=== PATIENT | male | born 1960 | race Caucasian/White ===

== ENCOUNTER → 2016-11-13 | Outpatient (CLI) | payer OTHER ==
--- NOTE | 2016-11-13 18:27 | CT ---
EXAMINATION TYPE: CT angio chest DATE OF EXAM: 11/13/2016 COMPARISON: 05/04/2015 HISTORY: Follow up anuerysm CT DLP: 431.1 mGycm CONTRAST: CTA thoracic and abdominal aorta with 3-D reconstruction is performed and with IV Contrast, patient i njected with 100 mL of Omnipaque 350. Contrast CTA of the thoracic was performed from the lung apex through the upper abdomen. 3-D reconstr uction imaging obtained at a separate workstation. CT Chest: THORACIC AORTA: There is an of the ascending thoracic aorta is stable at 4.5 cm versus 4.5 cm previou sly. The remainder of the thoracic aorta is of normal caliber. No evidence for dissection or complica ting factor. Mild atheromatous change noted. LUNGS: The lungs are clear and free of infiltrate or atelectasis. COPD with mild upper lobe emphysema tous change. No pulmonary nodule or mass is detected. No pleural effusion or CT evidence of intersti tial lung disease. MEDIASTINUM: The heart is not enlarged. No evidence for mediastinal mass or adenopathy. HILAR STRUCTURES: No evidence for mass. No hilar adenopathy is appreciated. OTHER: No significant abnormality. IMPRESSION- Stable ascending thoracic aortic aneurysm.
== END | disposition home or self-care (01) ==
LOC: RADCTMAIN 15:39
PROVIDERS: ATTEND Family Medicine
DX: I71.2 Thoracic aortic aneurysm, without rupture (principal)
CPT/HCPCS: 71275; Q9967

== ENCOUNTER → 2018-02-04 | Outpatient (CLI) | payer BC ==
--- NOTE | 2018-02-04 15:50 | CT ---
EXAMINATION TYPE: CT angio thor/abd pel aorta DATE OF EXAM: 02/04/2018 11:37 AM COMPARISON: 11/13/2016 HISTORY: Follow up thoracic aneurysm. CT DLP: 905.3 mGycm Automated exposure control for dose reduction was used. TECHNIQUE: Performed without and with IV Contrast, patient injected with 100 mL of Isovue 370. Three-D reconstructed images performed separately by the technologist are reviewed. FINDINGS: CT chest: Emphysematous bleb is at the medial anterior left upper lobe. Lung limon are otherwise mykel ar. CT ABDOMEN: Noncontrast imaging through the liver or spleen pancreas adrenal glands gallbladder and k idneys are unremarkable. Vascular calcification is within the aorta. Inferior vena cava is unremarkab le. Loops of bowel is visualized without oral contrast are unremarkable. Urinary bladder is normal. T he prostate is slightly prominent. Portion of the thyroid visualized and postcontrast imaging appears normal. Postcontrast CTA aorta:r aortic root measures 4.1 cm. The ascending thoracic aorta at the level of th e main pulmonary artery measures 4.3 cm. (Previous measurement 4.5 cm) The main pulmonary artery at t he bifurcation measures 2.7 cm. The aorta at the proximal aortic arch measures 3.5 cm. Posterior aort ic arch measures 3.1 cm. The descending thoracic aorta at the level the main pulmonary artery is 2.8 cm. The aorta at the diaphragm measures 2.8 cm. The infrarenal abdominal aorta measures 2.0 cm. Dista l abdominal aorta just proximal to the aortic bifurcation measures 2.0 cm. Common iliac vessels appea r unremarkable. Internal and external iliac vessels are patent. Common femoral arteries appear patent . No aneurysm or dissection is evident. IMPRESSION: 1. ASCENDING THORACIC AORTIC ANEURYSM APPEARS STABLE FROM COMPARISON. 2. DESCENDING THORACIC, ABDOMINAL AORTA AND AORTIC RUNOFF TO THE PROXIMAL FEMORAL ARTERIES TAPERS NOR PHYLICIA.
== END | disposition home or self-care (01) ==
LOC: RADCTMAIN 10:46
PROVIDERS: ATTEND Thoracic Surgery (Cardiothoracic Vascular Surgery)
DX: I71.2 Thoracic aortic aneurysm, without rupture (principal)
CPT/HCPCS: 71275; 74174; Q9967

== ENCOUNTER → 2019-03-02 | Outpatient (CLI) | payer BC ==
--- NOTE | 2019-03-02 09:35 | CT ---
EXAMINATION TYPE: CT chest w con DATE OF EXAM: 03/02/2019 COMPARISON: 02/04/2018 HISTORY: 59-year-old male Ascending aortic aneurysm. TECHNIQUE: Contiguous axial scanning of the chest after the administration of 100 mL of Isovue M300. Coronal/sagittal reconstructions performed. CT DLP: 334.2mGycm. Automatic exposure control utilized for a dose reduction. FINDINGS: Heart normal size without pericardial effusion. RCA and LAD calcifications are present. Aortic root measures 4.2 cm versus 4.1 cm, previously. Ascending aorta aneurysmal at 4.4 cm, unchanged. Proximal arch is ectatic at 3.7 cm, unchanged. Upper descending thoracic aorta is ectatic at 3.4 cm versus 3.1 cm, previously. Mildly ectatic mid to lower descending thoracic aorta measuring up to 2.8 cm, unchanged. No thoracic lymphadenopathy by CT size criteria. Aedx-kz-zbrxyhmo centrilobular emphysema greatest in the upper lungs. A large 3.3 cm bleb is located at the anterior left apex, unchanged. No consolidation or pleural effusion. Visualized upper abdomen shows no gross abnormality. Bones: Bridging syndesmophytes, ankylosis along the posterior elements and supraspinous ligaments as well. IMPRESSION: 1. Aortic root remains mildly aneurysmal (4.2 cm versus 4.1 cm, previously). 2. Aneurysmal ascending aorta at 4.4 cm, unchanged. 3. Upper descending thoracic aorta ectatic at 3.4 cm (versus 3.1 cm, previously). 4. COPD with mild to moderate upper lung emphysema and incidental ankylosing spondylitis.
== END | disposition home or self-care (01) ==
LOC: RADCTMAIN 08:43
PROVIDERS: ATTEND Thoracic Surgery (Cardiothoracic Vascular Surgery)
DX: J44.9 Chronic obstructive pulmonary disease, unspecified (principal); I71.4 Abdominal aortic aneurysm, without rupture; I77.810 Thoracic aortic ectasia
CPT/HCPCS: 71260; Q9967

== ENCOUNTER → 2019-11-03 | Outpatient (CLI) | payer BC ==
[~2019-11-03] MED LIST: REGADENOSON 0.4 MG/5 ML SYRINGE IV ONE
--- NOTE | 2019-11-03 12:10 | P.STRESS ---
- Stress Test Note Stress Test Results/Findings: Exam Performed: NM stress lexiscan cardiolite Exam Date: 11/03/19 Reason for Exam: CHEST PAIN Height: 6 ft 1 in Weight: 175 kg Protocol: LEXISCAN Stage: NA Duration of Exercise: NA Resting Heart Rate: 68 Resting Blood Pressure: 142/87 Maximum Achieved Heart Rate: 88 Maximum Achieved Blood Pressure: 142/87 85% PMHR: NA 100% PMHR: NA METS: NA Technologist Comment: Stress Test Results/Findings: This is a 59-year-old gentleman with history of hypertension smoking history, being evaluated for chest pain, palpitations, and also numbness in the face. Stress data Baseline EKG showed sinus rhythm with normal [place] interval and QRS duration. Blood pressure at rest is 142/87, pulse rate 68. A standard dose of Lexiscan was infused EKGs taken during the infusion did not reveal any changes from the baseline. Patient did not experience any chest pain. Final impression: #1. Negative Lexiscan stress test #2. Report on an interim is to be taken by the radiologist
--- NOTE | 2019-11-03 14:42 | EST ---
Stress Test Results/Findings: Exam Performed: NM stress lexiscan cardiolite Exam Date: 11/03/19 Reason for Exam: CHEST PAIN Height: 6 ft 1 in Weight: 175 kg Protocol: LEXISCAN Stage: NA Duration of Exercise: NA Resting Heart Rate: 68 Resting Blood Pressure: 142/87 Maximum Achieved Heart Rate: 88 Maximum Achieved Blood Pressure: 142/87 85% PMHR: NA 100% PMHR: NA METS: NA Technologist Comment: Stress Test Results/Findings: This is a 59-year-old gentleman with history of hypertension smoking history, being evaluated for chest pain, palpitations, and also numbness in the face. Stress data Baseline EKG showed sinus rhythm with normal RI interval and QRS duration. Blood pressure at rest is 142/87, pulse rate 68. A standard dose of Lexiscan was infused EKGs taken during the infusion did not reveal any changes from the baseline. Patient did not experience any chest pain. Final impression: #1. Negative Lexiscan stress test #2. Report on nuclear images to be given by the radiologist LA
--- NOTE | 2019-11-03 17:56 | NM ---
EXAMINATION TYPE: NM stress lexiscan cardiolite DATE OF EXAM: 11/03/2019 COMPARISON: NONE HISTORY: Chest pain TECHNIQUE: After the intravenous administration of 10 mCi Tc 99m Sestamibi - Cardiolite resting SPEC T images acquired 45 minutes post injection. The patient received 0.4mg Lexiscan, 24.9 mCi Tc 99m Sestamibi - Stress images obtained [address] injection FINDINGS: Review of stress and rest SPECT images demonstrates reversible perfusion abnormality of the septum an d apical and mid inferoseptal wall. Summed stress score There is gut activity, and decreased activity on stress and rest of the inferior wall, likely component of attenuation artifact. Gated analysis sh ows normal wall motion with an estimated left ventricular ejection fraction of 64 %. TID 1.19 IMPRESSION: 1. Reversible perfusion abnormality of the septum and inferoseptal wall. 2. Decreased activity of the inferior wall on stress and rest images likely component of gut attenua tion artifact. 3. Ejection fraction 64%. A [place] level critical message alert has been initiated for Kev Billings DO via the [employer] Critical Results System on 11/03/2019 5:54 PM. This message alert has been sent to Kev Doherty nd, DO via the preferences provided by the clinician for the receipt of Radiology Critical Findings. Message ID [id number].
== END | disposition home or self-care (01) ==
LOC: RADNMMAIN 07:20
PROVIDERS: ATTEND Family Medicine
DX: R93.1 Abnormal findings on diagnostic imaging of heart and coronary circulation (principal)
CPT/HCPCS: 93017; 78452; A9500; J2785

== ENCOUNTER → 2019-11-20 | Outpatient (CLI) | payer BC ==
[2019-11-20 13:46] LABS: HCT 41.6 % (39.0-53.0); HGB 13.6 gm/dL (13.0-17.5); MCH 28.6 pg (25.0-35.0); MCHC 32.6 g/dL (31.0-37.0); MCV 87.5 fL (80.0-100.0); Mean Platelet Volume 7.2; Platelet Count 189 k/uL (150-450); RBC 4.76 m/uL (4.30-5.90); RDW 13.1 % (11.5-15.5); WBC 5.8 k/uL (3.8-10.6)
[2019-11-20 14:00] LABS: African American GFR (CKD) >90 (>60 ml/min/1.73 sqM); Blood Urea Nitrogen 20 mg/dL (9-20); Magnesium 2.2 mg/dL (1.6-2.3); Non-African American GFR(CKD) >90 (>60 ml/min/1.73 sqM)
== END | disposition home or self-care (01) ==
LOC: LABPAT 11:29
PROVIDERS: ATTEND Internal Medicine Cardiovascular Disease
DX: Z01.818 Encounter for other preprocedural examination (principal); R93.1 Abnormal findings on diagnostic imaging of heart and coronary circulation
CPT/HCPCS: 82565; 83735; 84520; 85027

== ENCOUNTER 2019-11-24 09:30 | Day surgery (SDC) | payer BC ==
[2019-11-20 10:26] VITALS: BMI 25.7
[~2019-11-24 09:30] MED LIST changes: +ALPRAZolam 0.25 MG TAB PO PRN; +ALPRAZolam 0.5 MG TAB PO PRN; +ASPIRIN 325 MG TAB PO ONE; +ATORVASTATIN 80 MG TAB PO ONE; +NITROGLYCERIN SL TABS 0.4 MG TAB SUBLINGUAL PRN; -REGADENOSON 0.4 MG/5 ML SYRINGE IV ONE; +SODIUM CHLORIDE 0.9% 1,000 ML in EMPTY BAG 1 BAG IV ONE
[2019-11-24] MEDS ORDERED: LIDOCAINE 1% INJ 10MG/ML (20 ML MDV) ONE (10:20)
[2019-11-24] MEDS ORDERED: fentaNYL (PF) 50 MCG/ML 2 ML AMP ONE (10:22)
[2019-11-24] MEDS ORDERED: fentaNYL (PF) 50 MCG/ML 2 ML AMP IVP ONE (10:31)
[2019-11-24] MEDS ORDERED: MIDAZOLAM 2 MG/2 ML VIAL IVP ONE (10:31)
[2019-11-24] MEDS ORDERED: LIDOCAINE 1% INJ 10MG/ML (20 ML MDV) SQ ONE (10:33)
[2019-11-24] MEDS ORDERED: HEPARIN SODIUM 1,000 UN/ML (10ML VL) ONE (10:55)
[2019-11-24] MEDS ORDERED: HEPARIN SODIUM 1,000 UN/ML (10ML VL) IV ONE (10:57)
[2019-11-24] MEDS ORDERED: CLOPIDOGREL 75 MG TAB ONE (10:59)
[2019-11-24] MEDS ORDERED: CLOPIDOGREL 75 MG TAB PO ONE (11:01)
[2019-11-24] MEDS ORDERED: ONDANSETRON 4 MG/2 ML VIAL ONE (11:13)
[2019-11-24] MEDS ORDERED: ONDANSETRON 4 MG/2 ML VIAL IVP ONE (11:14)
[2019-11-24] MEDS: NITROGLYCERIN 1000MCG/10ML SYRINGE INTRACORON ONE ×2 (11:15→11:21)
[2019-11-24] MEDS ORDERED: IOPAMIDOL-370 125ML BTL INJ ONE (11:24)
[2019-11-24] MEDS ORDERED: RX INFO: IV CONTRAST WAS GIVEN 1 EACH MISC MISCELLANE PRN (11:35)
[2019-11-24] MEDS ORDERED: NITROGLYCERIN SL TABS 0.4 MG TAB SUBLINGUAL PRN (11:35)
[2019-11-24] MEDS ORDERED: MAG HYDROX/AL HYDROX/SIMETH 30 ML CUP PO PRN (11:35)
[2019-11-24] MEDS ORDERED: ZOLPIDEM 5 MG TAB PO PRN (11:35)
[2019-11-24] MEDS ORDERED: ATROPINE SULFATE 0.1 MG/ML 10ML SYRINGE IV PRN (11:35)
[2019-11-24] MEDS ORDERED: IOPAMIDOL-370 100ML BTL INJ ONE (11:39)
--- NOTE | 2019-11-24 11:47 | P.PRCINT ---
Percutaneous Coronary Int. - Percutaneous Coronary Intervention Percutaneous Coronary Intervention: PROCEDURES PERFORMED: Selective right coronary angiography, successful PCI of the mid RCA with a 3.0 x 15 mm Xience FINA. INDICATION: Abnormal stress test, class III angina HISTORY: Patient is a pleasant 59-year-old male with history of hypertension, dyslipidemia, AAA who has been having chest pain and had a stress test performed which showed reversible perfusion defects in the septum. Patient had a diagnostic catheterization performed by my partner and I was asked to evaluate for possible PCI. PROCEDURE: After the risks, benefits and alternatives of the above mentioned procedure explained in detail with the patient, informed consent was obtained. Heparin was given for an ACT > 250. The decision was made to intervene on the mid RCA. A 6Fr sheath had been placed in the right femoral artery using modified Seldinger technique. A 6Fr AL0.75 guide catheter was used to engage the RCA. A 0.014 BMW wire was advanced into the distal vessel without difficulty. The lesion was predilated with a 2.25 x 8 mm balloon. Next, a 3.0 x 15 mm Xience FINA was deployed. The stent was then post dilated with a 3.5 x 8 mm NC balloon. Preintervention there was a 80 % stenosis and JONG 3 flow and post intervention there was 0 % residual stenosis and JONG 3 flow without evidence of dissection. The wire was removed and final angiograms were taken. A right femoral angiogram was performed which did not show anatomy favorable for closure and therefore the sheath was sutured in place. The patient tolerated the procedure well. Patient was transported back to the post catheterization holding area in stable condition. Conscious Sedation: Patient was monitored under the direct supervision of vision of myself for conscious sedation using Versed and fentanyl for a total duration of 33 minutes HEMODYNAMICS: Aortic: 134/72 SELECTIVE CORONARY ARTERIOGRAPHY: LEFT MAIN: Not imaged, see diagnostic report LEFT ANTERIOR DESCENDING CORONARY ARTERY: Not imaged, see diagnostic report LEFT CIRCUMFLEX CORONARY ARTERY: Not imaged, see diagnostic report RIGHT CORONARY ARTERY: The right coronary artery is a large caliber vessel which gives off a PDA and PLV branch and is the dominant vessel. There is a proximal 30-40% RCA stenosis followed by a mid 30% and then a focal calcified 80% mid RCA stenosis. The remainder of the vessel has mild luminal irregularities. There is a 70-80% stenosis of the proximal PDA however appears to be a fairly small caliber vessel, approximately 2 mm in diameter. FINAL IMPRESSION: 1. Successful PCI of mid RCA with a 3.0 x 15 mm Xience FINA, postdilated with a 3.5 noncompliant balloon PLAN: 1. Aggressive risk factor modification per most recent ACC/AHA guidelines. 2. Tobacco cessation advised. We will pull the sheath when ACT is lowered and likely discharge home later today. 3. Follow-up in the office in 1-2 weeks.
--- NOTE | 2019-11-24 16:08 | CC ---
CARDIAC CATHETERIZATION REPORT INDICATION: Chest pain with abnormal stress test. PROCEDURE NOTE: After obtaining informed consent, left heart catheterization and coronary angiogram are performed via the right femoral artery using standard Zainab catheters. Patient tolerated the procedure well without any obvious immediate complications. Patient received moderate conscious sedation. Total sedation time was 15 minutes. FINDINGS: HEMODYNAMICS: Left ventricular end-diastolic pressure is 12 mm. There is no significant gradient across the aortic valve. LEFT VENTRICULOGRAM: Left ventricular is not performed. ANGIOGRAPHIC DATA: LEFT MAIN CORONARY ARTERY: Left main coronary artery is a normal-sized vessel and is free of stenosis. Divides in left anterior descending coronary artery and circumflex coronary artery. There is a mild atherosclerotic plaque in the distal left main prior to its bifurcation into the LAD and circumflex. The LAD and circumflex is free of focal hemodynamically significant lesions. It appears calcified as does the circumflex coronary artery. Circumflex coronary artery and its branches are free of significant stenosis. Right coronary artery is a large dominant vessel that shows a 70% stenosis in its midportion. CONCLUSION: Focal 70% stenosis involving mid RCA with mild nonobstructive disease involving the left coronary system, but appears calcified. PLAN: Patient will undergo angioplasty with stent placement by Dr. Allen. MMODL / IJN: [id number] /
--- NOTE | 2019-11-24 16:11 | LTR ---
DATE OF SERVICE: 11/24/2019 RE: Kofi Lowe Dear Dr. Billings; I performed cardiac catheterization on Jori Lowe, a detailed catheterization note is enclosed for your records. In brief, his cardiac catheterization reveals significant disease involving mid RCA, which correlates with his abnormal stress test and patient will undergo angioplasty with stent placement of the same. Thank you for giving us the privilege to participate in the care of this pleasant gentleman. Sincerely, MD DINESH Alfonso / WES: [id number] /
[2019-11-25 03:53] VITALS: RESP 16
[2019-11-25 08:42] VITALS: BP 154/86; PULSE 73; TEMP 98
[2019-11-25] MEDS ORDERED: ATORVASTATIN 40 MG TAB PO SCH (09:00)
[2019-11-25] MEDS ORDERED: CLOPIDOGREL 75 MG TAB PO SCH (09:00)
[2019-11-25] MEDS ORDERED: ASPIRIN 81 MG PO SCH (09:00)
[2019-11-25] MEDS ORDERED: ISOSORBIDE MONONITRATE ER 30 MG TAB.ER.24H PO SCH (09:00)
[2019-11-25] MEDS ORDERED: METOPROLOL SUCCINATE (ER) 25 MG TAB.ER.24H PO SCH (09:00)
[2019-11-25 09:27] LABS: African American GFR (CKD) >90 (>60 ml/min/1.73 sqM); Non-African American GFR(CKD) >90 (>60 ml/min/1.73 sqM)
--- NOTE | 2019-11-25 13:31 | P.DS ---
Providers Attending physician: Lázaro Angela Consults: 11/24/19 11:36 Consult Physician Routine Consulting Provider: [facility] Consult Reason/Comments: Post Interventional patient Do you want consulting provider notified?: Already Contacted Primary care physician: [facility] Course: This is a pleasant 59-year-old male who came in for an elective cardiac catheterization secondary to chest discomfort and abnormal stress test. Catheterization via the right femoral artery revealed left main normal size vessel and free of stenosis with mild atherosclerotic plaque in the distal left main prior to the bifurcation into the LAD and circumflex. LAD and circumflex free of focal significant lesions. RCA shows a 70% stenosis in the midportion. He underwent successful PCI with a drug-eluting stent to the mid RCA by Dr. Allen. He was initiated on dual antiplatelet therapy. He has had no symptoms of chest discomfort, shortness of breath, dizziness or palpitations. EKG this morning reveals sinus mechanism with no acute ischemic changes. Blood pressure 154/86 heart rate 73 afebrile maintaining oxygen saturation on room air. Laboratory data reviewed, creatinine 0.89 with a GFR greater than 90. GENERAL: Well-appearing, well-nourished and in no acute distress. NECK: Supple without JVD or thyromegaly. LUNGS: Breath sounds clear to auscultation bilaterally. Respiration equal and unlabored. No wheezes, rales or rhonchi. HEART: Regular rate and rhythm without murmurs, rubs or gallops. S1 and S2 heard. EXTREMITIES: Normal range of motion, no edema. No clubbing or cyanosis. Per ipheral pulses intact. Right femoral access site clean, dry and intact with no evidence of hematoma, bruising, bleeding or ecchymosis. ASSESSMENT Coronary artery disease status post successful PCI of the RCA to maintained on dual antiplatelet therapy PLAN Stable for discharge home on aspirin, Plavix, Toprol, losartan, atorvastatin and Imdur. Follow-up in the office with Dr. Angela next week. Post-cath instructions discussed in detail with the patient. Nurse Practitioner note has been reviewed, I agree with a documented findings and plan of care. Patient was seen and examined. Patient Condition at Discharge: Stable Plan - Discharge Summary Discharge Rx Participant: No New Discharge Prescriptions: New Clopidogrel [Plavix] 75 mg PO DAILY #90 tablet Continue Losartan [Cozaar] 50 mg PO HS Aspirin 81 mg PO DAILY Metoprolol Succinate [Toprol XL] 25 mg PO DAILY Atorvastatin Calcium [Lipitor] 40 mg PO DAILY Isosorbide Mononitrate [Isosorbide Mononitrate ER] 30 mg PO DAILY No Action traMADol HCL [Ultram] 50 mg PO BID PRN PRN Reason: Pain Discharge Medication List Losartan [Cozaar] 50 mg PO HS 11/23/13 [History] traMADol HCL [Ultram] 50 mg PO BID PRN 11/23/13 [History] Aspirin 81 mg PO DAILY 11/20/19 [History] Atorvastatin Calcium [Lipitor] 40 mg PO DAILY 11/20/19 [History] Isosorbide Mononitrate [Isosorbide Mononitrate ER] 30 mg PO DAILY 11/20/19 [History] Metoprolol Succinate [Toprol XL] 25 mg PO DAILY 11/20/19 [History] Clopidogrel [Plavix] 75 mg PO DAILY #90 tablet 11/24/19 [Rx] Follow up Appointment(s)/Referral(s): Lázaro Angela MD [STAFF PHYSICIAN] - 12/02/19 4:00 pm Patient Instructions/Handouts: *Surgery [facility] - After Heart Catheterization - [facility] [employer] Instructions Discharge Disposition: HOME SELF-CARE
[2019-11-25] MEDS ORDERED: LOSARTAN 50 MG TAB PO SCH (21:00)
== END 2019-11-25 11:15 | disposition home or self-care (01) ==
LOC: CATHCVL 09:30 → 3NCARDOBS 11:30 → CATHCVL 11-25 11:15
PROVIDERS: ATTEND Internal Medicine Cardiovascular Disease
DX: I25.10 Atherosclerotic heart disease of native coronary artery without angina pectoris (principal); I25.84 Coronary atherosclerosis due to calcified coronary lesion; I10 Essential (primary) hypertension; F17.210 Nicotine dependence, cigarettes, uncomplicated; R94.39 Abnormal result of other cardiovascular function study; E78.2 Mixed hyperlipidemia; I71.2 Thoracic aortic aneurysm, without rupture; Z82.49 Family history of ischemic heart disease and other diseases of the circulatory system; Z79.82 Long term (current) use of aspirin; Z79.899 Other long term (current) drug therapy; Z88.6 Allergy status to analgesic agent; Z88.0 Allergy status to penicillin
CPT/HCPCS: 93458; 82565; C9600; C1769 ×3; C1887; C1725 ×2; C1894; C1874; J2250; J2405; J2001; J3010; J1644; Q9967 ×2

== ENCOUNTER → 2020-05-11 | Outpatient (CLI) | payer BC ==
[2020-05-12 02:15] LABS: Chol/HDL Ratio 3.35; LDL Cholesterol,Calculated 68.4 mg/dL (0.0-131.0); VLDL Calculation 18.6 mg/dL (5.00-40.00)
== END | disposition home or self-care (01) ==
LOC: LABWHC1 12:02
PROVIDERS: ATTEND Internal Medicine Cardiovascular Disease
DX: E78.2 Mixed hyperlipidemia (principal)
CPT/HCPCS: 36415; 80061; 84450; 84460

== ENCOUNTER 2021-04-24 15:01 | Emergency (ER) | payer BC ==
[2021-04-24 15:06] VITALS: RESP 16; TEMP 98
[2021-04-24] MEDS ORDERED: HYDROmorphone 0.5 MG/0.5 ML SYRINGE IVP STA (15:53)
[2021-04-24] MEDS ORDERED: SODIUM CHLORIDE 0.9% 500 ML 500 ML IV STA (15:53)
[2021-04-24] MEDS ORDERED: ONDANSETRON 4 MG/2 ML VIAL IVP STA (15:53)
--- NOTE | 2021-04-24 16:00 | ED ---
General Adult HPI - General Chief complaint: Urogenital Stated complaint: Groin Pain Time Seen by Provider: 04/24/21 15:31 Source: patient, RN notes reviewed Mode of arrival: ambulatory Limitations: no limitations - History of Present Illness Initial comments: This a 61-year-old male presents emergency Department chief complaint of left groin swelling. Patient states it started one week ago. He is unsure what happens states he does know some bulging, burning pain. Patient denies any difficulty with bowel movement, no dysuria no hematuria. Patient denies any traumatic falls. Patient offers no other associated complaints. - Related Data Home Medications Medication Instructions Recorded Confirmed Losartan [Cozaar] 50 mg PO HS 11/23/13 11/24/19 traMADol HCL [Ultram] 50 mg PO BID PRN 11/23/13 11/24/19 Aspirin 81 mg PO DAILY 11/20/19 11/24/19 Atorvastatin Calcium [Lipitor] 40 mg PO DAILY 11/20/19 11/24/19 Isosorbide Mononitrate [Isosorbide 30 mg PO DAILY 11/20/19 11/24/19 Mononitrate ER] Metoprolol Succinate [Toprol XL] 25 mg PO DAILY 11/20/19 11/24/19 Previous Rx's Medication Instructions Recorded Clopidogrel [Plavix] 75 mg PO DAILY #90 tablet 11/24/19 Allergies Allergy/AdvReac Type Severity Reaction Status Date / Time acetaminophen Allergy Swelling Verified 04/24/21 15:04 of tongue and mouth, SOB amoxicillin [Amoxicillin] AdvReac Rash/Hives Verified 04/24/21 15:04 Review of Systems ROS Statement: Those systems with pertinent positive or pertinent negative responses have been documented in the HPI. ROS Other: All systems not noted in ROS Statement are negative. Past Medical History Past Medical History: Blood Disorder, Chest Pain / Angina, Eye Disorder, Hypertension, Osteoarthritis (OA) Additional Past Medical History / Comment(s): "aneurysm in heart",unexplained wt loss, Vit K Deficiency, CHRONIC BRONCHITIS, ANKYLOSING SPONDYLITIS-MID & LOWER BACK PAIN, ARTHRITIS RT KNEE,RT ANKLE & LT SHOULDER, GLASSES DAILY USE History of Any Multi-Drug Resistant Organisms: None Reported Past Surgical History: Breast Surgery, Orthopedic Surgery Additional Past Surgical History / Comment(s): left breast lump remove, rt knee surgery Past Anesthesia/Blood Transfusion Reactions: No Reported Reaction Additional Past Anesthesia/Blood Transfusion Reaction / Comment(s): no problems with prior blood transfusion Past Psychological History: No Psychological Hx Reported Smoking Status: Current every day smoker Past Alcohol Use History: Rare Past Drug Use History: None Reported - Past Family History Father Family Medical History: Cancer Additional Family Medical History / Comment(s): LUNG CA Mother Family Medical History: Cancer Additional Family Medical History / Comment(s): THROAT CA Brother(s) Family Medical History: Cancer, Congestive Heart Failure (CHF) Additional Family Medical History / Comment(s): COLON CA-,2nd brother throat CA,3r brother with CHF General Exam Limitations: no limitations General appearance: alert, in no apparent distress Head exam: Present: atraumatic, normocephalic, normal inspection Neck exam: Present: normal inspection. Absent: tenderness, meningismus, lymphadenopathy Respiratory exam: Present: normal lung sounds bilaterally. Absent: respiratory distress, wheezes, rales, rhonchi, stridor Cardiovascular Exam: Present: regular rate, normal rhythm, normal heart sounds. Absent: systolic murmur, diastolic murmur, rubs, gallop, clicks GI/Abdominal exam: Present: soft, tenderness, normal bowel sounds, hernia (Left inguinal). Absent: distended, guarding, rebound, rigid Course Vital Signs 04/24/21 15:04 Temperature 98 F Pulse Rate 85 Respiratory 16 Rate Blood Pressure 146/89 O2 Sat by Pulse 98 Oximetry Medical Decision Making - Medical Decision Making Patient is a left-sided inguinal hernia patient was placed in Trendelenburg position, ice pack applied and was reduced with no difficulty. Patient does have fat-containing hernia and CT. Patient we discharged with follow-up with on-call surgery. - Lab Data Result diagrams: 04/24/21 15:57 04/24/21 15:57 Lab Results 04/24/21 04/24/21 04/24/21 Range/Units 15:57 15:57 15:57 WBC 7.9 (3.8-10.6) k/uL RBC 4.87 (4.30-5.90) m/uL Hgb 15.0 (13.0-17.5) gm/dL Hct 44.2 (39.0-53.0) % MCV 90.8 (80.0-100.0) fL MCH 30.8 (25.0-35.0) pg MCHC 34.0 (31.0-37.0) g/dL RDW 12.8 (11.5-15.5) % Plt Count 165 (150-450) k/uL MPV 8.0 Neutrophils % 71 % Lymphocytes % 21 % Monocytes % 4 % Eosinophils % 2 % Basophils % 1 % Neutrophils # 5.6 (1.3-7.7) k/uL Lymphocytes # 1.7 (1.0-4.8) k/uL Monocytes # 0.3 (0-1.0) k/uL Eosinophils # 0.1 (0-0.7) k/uL Basophils # 0.1 (0-0.2) k/uL PT 10.5 (9.0-12.0) sec INR 1.0 (<1.2) APTT 25.5 (22.0-30.0) sec Sodium 139 (137-145) mmol/L Potassium 4.2 (3.5-5.1) mmol/L Chloride 108 H (98-107) mmol/L Carbon Dioxide 22 (22-30) mmol/L Anion Gap 9 mmol/L BUN 21 H (9-20) mg/dL Creatinine 0.84 (0.66-1.25) mg/dL Est GFR (CKD-EPI)AfAm >90 (>60 ml/min/1.73 sqM) Est GFR (CKD-EPI)NonAf >90 (>60 ml/min/1.73 sqM) Glucose 116 H (74-99) mg/dL Plasma Lactic Acid Se (0.7-2.0) mmol/L Calcium 9.1 (8.4-10.2) mg/dL Total Bilirubin 0.5 (0.2-1.3) mg/dL AST 25 (17-59) U/L ALT 14 (4-49) U/L Alkaline Phosphatase 49 (38-126) U/L Total Protein 6.9 (6.3-8.2) g/dL Albumin 4.2 (3.5-5.0) g/dL Urine Color Urine Appearance (Clear) Urine pH (5.0-8.0) Ur Specific [place] (1.001-1.035) Urine Protein (Negative) Urine Glucose (UA) (Negative) Urine Ketones (Negative) Urine Blood (Negative) Urine Nitrite (Negative) Urine Bilirubin (Negative) Urine Urobilinogen (<2.0) mg/dL Ur Leukocyte Esterase (Negative) 04/24/21 04/24/21 Range/Units 15:57 16:06 WBC (3.8-10.6) k/uL RBC (4.30-5.90) m/uL Hgb (13.0-17.5) gm/dL Hct (39.0-53.0) % MCV (80.0-100.0) fL MCH (25.0-35.0) pg MCHC (31.0-37.0) g/dL RDW (11.5-15.5) % Plt Count (150-450) k/uL MPV Neutrophils % % Lymphocytes % % Monocytes % % Eosinophils % % Basophils % % Neutrophils # (1.3-7.7) k/uL Lymphocytes # (1.0-4.8) k/uL Monocytes # (0-1.0) k/uL Eosinophils # (0-0.7) k/uL Basophils # (0-0.2) k/uL PT (9.0-12.0) sec INR (<1.2) APTT (22.0-30.0) sec Sodium (137-145) mmol/L Potassium (3.5-5.1) mmol/L Chloride (98-107) mmol/L Carbon Dioxide (22-30) mmol/L Anion Gap mmol/L BUN (9-20) mg/dL Creatinine (0.66-1.25) mg/dL Est GFR (CKD-EPI)AfAm (>60 ml/min/1.73 sqM) Est GFR (CKD-EPI)NonAf (>60 ml/min/1.73 sqM) Glucose (74-99) mg/dL Plasma Lactic Acid Se 0.7 (0.7-2.0) mmol/L Calcium (8.4-10.2) mg/dL Total Bilirubin (0.2-1.3) mg/dL AST (17-59) U/L ALT (4-49) U/L Alkaline Phosphatase (38-126) U/L Total Protein (6.3-8.2) g/dL Albumin (3.5-5.0) g/dL Urine Color Yellow Urine Appearance Clear (Clear) Urine pH 6.5 (5.0-8.0) Ur Specific [place] 1.027 (1.001-1.035) Urine Protein Negative (Negative) Urine Glucose (UA) Negative (Negative) Urine Ketones Negative (Negative) Urine Blood Negative (Negative) Urine Nitrite Negative (Negative) Urine Bilirubin Negative (Negative) Urine Urobilinogen <2.0 (<2.0) mg/dL Ur Leukocyte Esterase Negative (Negative) Disposition Clinical Impression: Left inguinal hernia Disposition: HOME SELF-CARE Condition: Stable Instructions (If sedation given, give patient instructions): Inguinal Hernia (ED) Additional Instructions: Please return to the Emergency Department if symptoms worsen or any other concerns. Is patient prescribed a controlled substance at d/c from ED?: No Referrals: Kev Billings DO [Primary Care Provider] - 1-2 days Jose D Flores MD [STAFF PHYSICIAN] - 1-2 days Time of Disposition: 17:40
[2021-04-24 16:13] LABS: Basophils # (A) 0.1 k/uL (0-0.2); Basophils % (A) 1 %; Eosinophils # (A) 0.1 k/uL (0-0.7); Eosinophils % (A) 2 %; HCT 44.2 % (39.0-53.0); Lymphocytes # (A) 1.7 k/uL (1.0-4.8); Lymphocytes % (A) 21 %; MCH 30.8 pg (25.0-35.0); MCV 90.8 fL (80.0-100.0); Monocytes # (A) 0.3 k/uL (0-1.0); Monocytes % (A) 4 %; Neutrophils # (A) 5.6 k/uL (1.3-7.7); Neutrophils % (A) 71 %; Platelet Count 165 k/uL (150-450); RBC 4.87 m/uL (4.30-5.90); RDW 12.8 % (11.5-15.5); WBC 7.9 k/uL (3.8-10.6)
[2021-04-24 16:21] LABS: Appearance,Urine Clear (Clear); Bilirubin,Urine Negative (Negative); Blood,Urine Negative (Negative); Color,Urine Yellow; Glucose,Urine (UA) Negative (Negative); Ketones,Urine Negative (Negative); Leukocyte Esterase,Urine Negative (Negative); Nitrite,Urine Negative (Negative); PH, Urine 6.5 (5.0-8.0); Protein,Urine Negative (Negative); Specific Gravity,Urine 1.027 (1.001-1.035); Urobilinogen,Urine <2.0 mg/dL (<2.0)
[2021-04-24 16:25] LABS: Partial Thromboplastin Time 25.5 sec (22.0-30.0); Prothrombin Time 10.5 sec (9.0-12.0)
[2021-04-24 16:30] LABS: ALT 14 U/L (4-49); AST 25 U/L (17-59); African American GFR (CKD) >90 (>60 ml/min/1.73 sqM); Albumin 4.2 g/dL (3.5-5.0); Alkaline Phosphatase 49 U/L (38-126); Anion Gap 9 mmol/L; Blood Urea Nitrogen 21 mg/dL (9-20); Calcium 9.1 mg/dL (8.4-10.2); Carbon Dioxide 22 mmol/L (22-30); Chloride 108 mmol/L (98-107); Glucose 116 mg/dL (74-99); Non-African American GFR(CKD) >90 (>60 ml/min/1.73 sqM); Potassium 4.2 mmol/L (3.5-5.1); Sodium 139 mmol/L (137-145); Total Bilirubin 0.5 mg/dL (0.2-1.3); Total Protein 6.9 g/dL (6.3-8.2)
--- NOTE | 2021-04-24 17:38 | CT ---
EXAMINATION TYPE: CT abdomen pelvis w con DATE OF EXAM: 04/24/2021 COMPARISON: 02/04/2018 HISTORY: Left groin pain. CT DLP: 1060.6 mGycm Automated exposure control for dose reduction was used. CONTRAST: Performed with IV Contrast, patient injected with 100 mL of Isovue 300. Images obtained from the diaphragm to the floor the pelvis with IV contrast. The lung bases are clear of consolidation. There is no pleural effusion. Heart size is normal. There is no pericardial effusion. Liver spleen and stomach pancreas and gallbladder appear normal. The bile ducts are not dilated. There is no adrenal mass. Kidneys show satisfactory contrast opacification. There is no hydronephrosi s. The ureters are not dilated. There is no retroperitoneal adenopathy. The bladder distends smoothly . There is no inguinal hernia. There are some sigmoid diverticula. No sign of diverticulitis. There i s fat-containing left side inguinal hernia. There is no mesenteric edema. There is no ascites or free air. There is no bowel obstruction. Appendi x not clearly seen. No sign of thickened appendix. The lumbar vertebrae are fairly normal alignment. There is no significant disc space narrowing. There is no compression fracture. Bony pelvis is intact. Hip joints are intact. Delayed images show normal renal excretion. IMPRESSION: There is fat-containing left-sided inguinal hernia measuring 3 cm in diameter and appears new compare d to old CT scan. Mild sigmoid diverticulosis.
[2021-04-24 18:15] VITALS: BP 140/78; PULSE 82
== END 2021-04-24 18:16 | disposition home or self-care (01) ==
LOC: EC 15:01
DX: K40.90 Unilateral inguinal hernia, without obstruction or gangrene, not specified as recurrent (principal); I10 Essential (primary) hypertension; M19.90 Unspecified osteoarthritis, unspecified site; F17.200 Nicotine dependence, unspecified, uncomplicated; Z79.82 Long term (current) use of aspirin; Z79.02 Long term (current) use of antithrombotics/antiplatelets; Z88.0 Allergy status to penicillin
CPT/HCPCS: 99284; 96374; 96375; 96361; 36415; 80053; 83605; 85025; 85610; 85730; 81003; 74177; J2405; J1170; Q9967

== ENCOUNTER → 2021-05-10 | Outpatient (CLI) | payer BC ==
[2021-05-10 19:02] LABS: Basophils # (A) 0.08 X 10*3/uL (0.00-0.10); Basophils % (A) 1.3 %; Eosinophils % (A) 1.6 %; HGB 14.8 g/dL (13.0-17.0); Immature Grans, Automated 0.3 %; Lymphocytes # (A) 2.09 X 10*3/uL (0.90-5.00); Lymphocytes % (A) 32.9 %; MCH 29.2 pg (27.0-32.0); MCHC 32.2 g/dL (32.0-37.0); MCV 90.9 fL (80.0-97.0); Mean Platelet Volume 10.8 fL (9.5-12.2); Monocytes # (A) 0.39 X 10*3/uL (0.20-1.00); Monocytes % (A) 6.1 %; NRBC Per 100 WBC 0 /100 WBCS (0.0-0.0); Neutrophils # (A) 3.68 X 10*3/uL (1.80-7.70); Neutrophils % (A) 57.8 %; Platelet Count 186 X 10*3/uL (140-440); RBC 5.06 X 10*6/uL (4.40-5.60); RDW 12.6 % (11.5-14.5); WBC 6.36 X 10*3/uL (4.50-10.00)
== END | disposition home or self-care (01) ==
LOC: LABPAT 09:14
PROVIDERS: ATTEND Surgery
DX: Z01.810 Encounter for preprocedural cardiovascular examination (principal); Z01.812 Encounter for preprocedural laboratory examination; K40.90 Unilateral inguinal hernia, without obstruction or gangrene, not specified as recurrent
CPT/HCPCS: 85025; 93005

== ENCOUNTER 2021-05-15 08:35 | Day surgery (SDC) | payer BC ==
[2021-05-11 11:39] VITALS: BMI 25.7
[~2021-05-15 08:35] MED LIST changes: -ALPRAZolam 0.25 MG TAB PO PRN; -ALPRAZolam 0.5 MG TAB PO PRN; -ASPIRIN 325 MG TAB PO ONE; -ATORVASTATIN 80 MG TAB PO ONE; +DEXAMETHASONE SOD PHOSPHATE 4 MG/ML 1 ML VIAL IV ONE; +HEPARIN SODIUM,PORCINE/PF 5,000 UNIT/0.5 ML SYRINGE SQ PRN; +HYDROmorphone 0.5 MG/0.5 ML SYRINGE IVP PRN; +LACTATED RINGERS 1,000 ML IV SCH; +LIDOCAINE 1% (10MG/ML) FOR IV START INTRADERMA PRN; +MIDAZOLAM 2 MG/2 ML VIAL IV PRN; -NITROGLYCERIN SL TABS 0.4 MG TAB SUBLINGUAL PRN; +ONDANSETRON 4 MG/2 ML VIAL IVP ONE; -SODIUM CHLORIDE 0.9% 1,000 ML in EMPTY BAG 1 BAG IV ONE
[2021-05-15] MEDS ORDERED: ONDANSETRON 4 MG/2 ML VIAL IVP ONE (09:30)
[2021-05-15] MEDS ORDERED: DEXAMETHASONE SOD PHOSPHATE 4 MG/ML 1 ML VIAL IVP ONE (09:31)
[2021-05-15] MEDS ORDERED: fentaNYL (PF) 50 MCG/ML 2 ML AMP ONE (10:04)
[2021-05-15] MEDS ORDERED: MIDAZOLAM 2 MG/2 ML VIAL ONE (10:04)
[2021-05-15] MEDS ORDERED: PROPOFOL 10 MG/ML 20 ML VIAL IV ONE (10:04)
[2021-05-15] MEDS ORDERED: LIDOCAINE 1% INJ 10MG/ML (20 ML MDV) ONE (10:04)
--- NOTE | 2021-05-15 10:25 | P.GSHP ---
History of Present Illness H&P Date: 05/15/21 Chief Complaint: Basal cell carcinoma of chest This is a 61-year-old male who has a large basal cell carcinoma chest. Patient presents today for wide local excision. 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 History of Any Multi-Drug Resistant Organisms: None Reported Past Surgical History: Breast Surgery, Heart Catheterization With Stent, Orthopedic Surgery Additional Past Surgical History / Comment(s): Left breast lumpectomy, right knee surgery. Past Anesthesia/Blood Transfusion Reactions: No Reported Reaction Additional Past Anesthesia/Blood Transfusion Reaction / Comment(s): No problems with prior blood transfusion (53 yrs ago). Date of Last Stent Placement:: 11/24/19 Past Psychological History: No Psychological Hx Reported Smoking Status: Current every day smoker Past Alcohol Use History: Rare Additional Past Alcohol Use History / Comment(s): SMOKER SINCE AGE 7(1966) 3/4 PPD. Past Drug Use History: None Reported - Past Family History Father Family Medical History: Cancer Additional Family Medical History / Comment(s): LUNG CANCER. Mother Family Medical History: Cancer Additional Family Medical History / Comment(s): THROAT CANCER. Brother(s) Family Medical History: Cancer, Congestive Heart Failure (CHF) Additional Family Medical History / Comment(s): COLON CANCER-, 2nd brother throat cancer, 3r brother CHF/cancer. Medications and Allergies Home Medications Medication Instructions Recorded Confirmed Type Losartan [Cozaar] 50 mg PO DAILY@1200 11/23/13 05/15/21 History traMADol HCL [Ultram] 50 mg PO BID PRN 11/23/13 05/15/21 History Aspirin 81 mg PO DAILY 11/20/19 05/15/21 History Atorvastatin Calcium [Lipitor] 40 mg PO DAILY 11/20/19 05/15/21 History Metoprolol Succinate [Toprol XL] 25 mg PO DAILY@1200 11/20/19 05/15/21 History Allergies Allergy/AdvReac Type Severity Reaction Status Date / Time acetaminophen Allergy Swelling Verified 05/15/21 09:01 of tongue and mouth, SOB amoxicillin [Amoxicillin] AdvReac Rash/Hives Verified 05/15/21 09:01 NSAIDS (Non-Steroidal AdvReac "Cannot Verified 05/15/21 09:01 Anti-Inflamma take with heart medications I am on." Surgical - Exam Vital Signs Temp Pulse Resp BP Pulse Ox 98.3 F 75 18 128/82 97 05/15/21 09:04 05/15/21 09:04 05/15/21 09:04 05/15/21 09:04 05/15/21 09:04 - General well developed, well nourished, no distress - Eyes PERRL - Neck no masses - Respiratory normal expansion - Abdomen Abdomen: soft, non tender - Integumentary 8 cm basal cell carcinoma located over midsternum Assessment and Plan Plan: Basal cell carcinoma. We'll perform wide local excision.
[2021-05-15] MEDS ORDERED: SODIUM CHLORIDE 0.9% 50 ML with ceFAZolin 2,000 MG IV ONE ×2 (10:27)
[2021-05-15] MEDS ORDERED: BUPIVACAIN-EPI 0.25%-1:200,000 30 ML VIAL SQ ONE (10:29)
--- NOTE | 2021-05-15 11:08 | P.OP ---
Date of Procedure: 05/15/21 Preoperative Diagnosis: Basal cell carcinoma chest wall Postoperative Diagnosis: Basal cell carcinoma chest wall 10 cm Procedure(s) Performed: Wide local excision of large basal cell carcinoma chest wall with complex closure Anesthesia: WILMAR Surgeon: Jose D Flores Estimated Blood Loss (ml): 10 Pathology: other (Basal cell carcinoma. Suture placed on superior portion of specimen) Condition: stable Disposition: PACU Description of Procedure: The patient's placed on the operative table in the supine position. He received general endotracheal tube as he. His chest wall was prepped and draped usual fashion. Patient had a large basal cell carcinoma measuring approximately 10 cm diameter over the midportion of the sternum. Elliptical skin incision was made around the lesion. Using cautery the subcutaneous tissues were divided. The specimens of pathology. The specimen was tagged with a suture superiorly. Due to the large defect the skin edges were undermined using cautery. The wound was then closed with interrupted 2-0 nylon mattress nylon suture. Sterile dressings applied. Patient top she will was sent to recovery room in stable condition.
[2021-05-15 11:14] VITALS: TEMP 97.1
[2021-05-15] MEDS ORDERED: LACTATED RINGERS 1,000 ML IV ONE (11:41)
[2021-05-15 11:48] VITALS: RESP 16
[2021-05-15 12:01] VITALS: BP 124/87; PULSE 67
== END 2021-05-15 12:16 | disposition home or self-care (01) ==
LOC: OR 08:35
PROVIDERS: ATTEND Surgery
DX: C44.519 Basal cell carcinoma of skin of other part of trunk (principal); I25.10 Atherosclerotic heart disease of native coronary artery without angina pectoris; I10 Essential (primary) hypertension; M19.90 Unspecified osteoarthritis, unspecified site; I20.9 Angina pectoris, unspecified; I25.3 Aneurysm of heart; E56.1 Deficiency of vitamin K; J42 Unspecified chronic bronchitis; M45.6 Ankylosing spondylitis lumbar region; M45.4 Ankylosing spondylitis of thoracic region; Z95.5 Presence of coronary angioplasty implant and graft; Z98.890 Other specified postprocedural states; F17.210 Nicotine dependence, cigarettes, uncomplicated; Z80.1 Family history of malignant neoplasm of trachea, bronchus and lung; Z80.0 Family history of malignant neoplasm of digestive organs; Z82.49 Family history of ischemic heart disease and other diseases of the circulatory system; E78.5 Hyperlipidemia, unspecified; Z79.82 Long term (current) use of aspirin; Z79.899 Other long term (current) drug therapy; Z88.6 Allergy status to analgesic agent; Z88.0 Allergy status to penicillin
CPT/HCPCS: 11606; 88305; J2250; J1100; J2405; J0690; J2001; J3010; J2704; J1644

== ENCOUNTER 2021-05-17 09:11 | Day surgery (SDC) | payer BC ==
[2021-05-11 11:54] VITALS: BMI 26.4
[~2021-05-17 09:11] MED LIST changes: +ACETAMINOPHEN TAB 500 MG TAB ONE; +HEPARIN SODIUM,PORCINE/PF 5,000 UNIT/0.5 ML SYRINGE SQ ONE; -HYDROmorphone 0.5 MG/0.5 ML SYRINGE IVP PRN; -MIDAZOLAM 2 MG/2 ML VIAL IV PRN; +ONDANSETRON 4 MG/2 ML VIAL ONE; +[UNRECOGNIZED DRUG - REMARK] MISCELLANE ONE
[2021-05-17] MEDS ORDERED: fentaNYL (PF) 50 MCG/ML 2 ML AMP IV ONE (10:26)
[2021-05-17] MEDS ORDERED: MIDAZOLAM 2 MG/2 ML VIAL IV ONE ×2 (10:26→10:28)
--- NOTE | 2021-05-17 10:42 | P.GSHP ---
History of Present Illness H&P Date: 05/17/21 Chief Complaint: Left inguinal hernia This is a 61-year-old male who presents today for laparoscopic robotic-assisted repair of left inguinal hernia. Patient developed a tender mass in his left groin. 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 History of Any Multi-Drug Resistant Organisms: None Reported Past Surgical History: Breast Surgery, Heart Catheterization With Stent, Orthopedic Surgery Additional Past Surgical History / Comment(s): Left breast lumpectomy, right knee surgery. Past Anesthesia/Blood Transfusion Reactions: No Reported Reaction Additional Past Anesthesia/Blood Transfusion Reaction / Comment(s): No problems with prior blood transfusion (53 yrs ago). Date of Last Stent Placement:: 11/24/19 Past Psychological History: No Psychological Hx Reported Smoking Status: Current every day smoker Past Alcohol Use History: Rare Additional Past Alcohol Use History / Comment(s): SMOKER SINCE AGE 7(1966) 3/4 PPD. Past Drug Use History: None Reported - Past Family History Father Family Medical History: Cancer Additional Family Medical History / Comment(s): LUNG CANCER. Mother Family Medical History: Cancer Additional Family Medical History / Comment(s): THROAT CANCER. Brother(s) Family Medical History: Cancer, Congestive Heart Failure (CHF) Additional Family Medical History / Comment(s): COLON CANCER-, 2nd brother throat cancer, 3r brother CHF/cancer. Medications and Allergies Home Medications Medication Instructions Recorded Confirmed Type Losartan [Cozaar] 50 mg PO DAILY@1200 11/23/13 05/15/21 History traMADol HCL [Ultram] 50 mg PO BID PRN 11/23/13 05/15/21 History Aspirin 81 mg PO DAILY 11/20/19 05/15/21 History Atorvastatin Calcium [Lipitor] 40 mg PO DAILY 11/20/19 05/15/21 History Metoprolol Succinate [Toprol XL] 25 mg PO DAILY@1200 11/20/19 05/15/21 History Allergies Allergy/AdvReac Type Severity Reaction Status Date / Time acetaminophen Allergy Swelling Verified 05/17/21 09:43 of tongue and mouth, SOB amoxicillin [Amoxicillin] AdvReac Rash/Hives Verified 05/17/21 09:43 NSAIDS (Non-Steroidal AdvReac "Cannot Verified 05/17/21 09:43 Anti-Inflamma take with heart medications I am on." Surgical - Exam - General well developed, well nourished, no distress - Eyes PERRL - ENT normal pinna - Neck no masses - Respiratory normal expansion - Cardiovascular Rhythm: regular - Abdomen Left inguinal hernia Abdomen: soft, non tender Assessment and Plan Assessment: Left inguinal hernia. We'll perform laparoscopic robotic-assisted repair.
--- NOTE | 2021-05-17 10:46 | P.ANPRN ---
Procedure Note - Anesthesia - Nerve Block Performed Bilateral Transversus Abdominis Single Time Out Performed: Yes Date of Procedure: 05/17/21 Procedure Start Time: 10: Procedure Stop Time: :35 Location of Patient: Phase I Indication: Acute Post-Operative Pain, Dx/Pain Location (Abdominal pain), Requested by Surgeon Sedation Type: Sedate with meaningful contact maintained Preparation: Sterile Prep Position: Supine Catheter: None Needle Types: Pajunk Needle Gauge: 21 Ultrasound used to visualize needle placement: Yes Ultrasound used to observe medication spread: Yes Injectate: 0.5% Ropivacaine (see comment for volume) (20ml 0.25% each side) Blood Aspirated: No Pain Paresthesia on Injection Noted: No Resistance on Injection: Normal Image Stored and Saved: Yes Events: Uneventful and Well Tolerated
[2021-05-17] MEDS ORDERED: KETAMINE 10 MG/ML 20 ML VIAL ONE (10:53)
[2021-05-17] MEDS ORDERED: PROPOFOL 10 MG/ML 20 ML VIAL IV ONE (10:53)
[2021-05-17] MEDS ORDERED: ROPIVACAINE 5 MG/ML 30 ML VIAL ONE (10:53)
[2021-05-17] MEDS ORDERED: SUCCINYLCHOLINE CHLORIDE 100 MG/5 ML SYR IV ONE (10:53)
[2021-05-17] MEDS ORDERED: ROCURONIUM 10 MG/ML (5 ML VIAL) IV ONE (10:53)
[2021-05-17] MEDS ORDERED: NEOSTIGMINE 1 MG/ML 10 ML VIAL ONE (10:53)
[2021-05-17] MEDS ORDERED: LIDOCAINE 1% INJ 10MG/ML (20 ML MDV) ONE (10:53)
[2021-05-17] MEDS ORDERED: GLYCOPYRROLATE 0.2 MG/ML 2 ML VIAL ONE (10:53)
[2021-05-17] MEDS ORDERED: ePHEDrine 50 MG/ML 1 ML VIAL ONE (10:53)
[2021-05-17] MEDS ORDERED: BUPIVACAIN-EPI 0.25%-1:200,000 30 ML VIAL SQ ONE (11:13)
[2021-05-17] MEDS ORDERED: LACTATED RINGERS 1,000 ML IV ONE (11:32)
--- NOTE | 2021-05-17 12:18 | P.OP ---
Date of Procedure: 05/17/21 Preoperative Diagnosis: Left inguinal hernia Postoperative Diagnosis: Bilateral inguinal hernia Bilateral cord lipoma Procedure(s) Performed: Transversus abdominis abdominis plain block Laparoscopic robotic repair of bilateral hernia Laparoscopic removal of bilateral cord lipoma Anesthesia: WILMAR Surgeon: Jose D Flores Estimated Blood Loss (ml): 5 Pathology: other (Bilateral cord lipoma) Condition: stable Disposition: PACU Description of Procedure: The patient's placed on the operating table in the supine position. The patient received general anesthesia. The patient's abdomen was prepped and draped in usual sterile fashion. The skin was anesthetized 1% local Xylocaine at the incision sites. Using an 11 blade a skin incision was made at the umbilicus. The fascia was grasped with a Jacob and then the peritoneal cavity was entered with the Veress needle. Position of the Veress needle was confirmed with a positive drop test. After adequate insufflation a 5 mm trocar was placed into the peritoneal cavity. The Laparoscope was placed the peritoneal cavity. And a robotic 8 mm trocar was placed in the right lateral position and then another 8 mm robotic trochars placed in the left lateral position. The original 5 mm trocar was exchanged for a 12 mm trocar. A transverse abdominis plain block was performed using 1% local Xylocaine. The patient was placed in reverse Trendelenburg and then the patient was docked to the robot. Next the peritoneum over top of the right inguinal hernia was incised and then using blunt and sharp dissection and electrocautery the hernia sac was dissected free from the floor of the inguinal canal. The cord lipoma was dissected free and sent to pathology. The hernia sac was completely reduced into the peritoneal cavity. And then using the Pro senior game advisor mesh the hernia was repaired. The peritoneum was then sutured with 20V lock suture. Next the peritoneum over top of the left inguinal hernia was incised and then using blunt and sharp dissection and electrocautery the hernia sac was dissected free from the floor of the inguinal canal. The cord lipoma was dissected free and sent to pathology. The hernia sac was completely reduced into the peritoneal cavity. And then using the Pro senior game advisor mesh the hernia was repaired. The peritoneum was then sutured with 20V lock suture. The patient was then undocked the robot. The needle was withdrawn from the peritoneal cavity. The umbilical trocar site was closed with 0 Ethibond suture. The skin was closed interrupted 3-0 Monocryl suture. Dermabond dressing was applied. Patient was sent to recovery in stable condition.
[2021-05-17 12:19] VITALS: TEMP 97.5
[2021-05-17] MEDS: HYDROmorphone 0.5 MG/0.5 ML SYRINGE IVP PRN ×2 (12:39→12:54)
[2021-05-17 12:55] VITALS: RESP 16
[2021-05-17 14:07] VITALS: BP 125/76; PULSE 72
== END 2021-05-17 14:21 | disposition home or self-care (01) ==
LOC: OR 09:11
PROVIDERS: ATTEND Surgery
DX: K40.20 Bilateral inguinal hernia, without obstruction or gangrene, not specified as recurrent (principal); D17.6 Benign lipomatous neoplasm of spermatic cord; G89.18 Other acute postprocedural pain; I10 Essential (primary) hypertension; M19.90 Unspecified osteoarthritis, unspecified site; Z86.79 Personal history of other diseases of the circulatory system; M45.9 Ankylosing spondylitis of unspecified sites in spine; E56.1 Deficiency of vitamin K; J42 Unspecified chronic bronchitis; H57.9 Unspecified disorder of eye and adnexa; D75.9 Disease of blood and blood-forming organs, unspecified; Z95.5 Presence of coronary angioplasty implant and graft; Z80.1 Family history of malignant neoplasm of trachea, bronchus and lung; Z80.8 Family history of malignant neoplasm of other organs or systems; F17.210 Nicotine dependence, cigarettes, uncomplicated; Z82.49 Family history of ischemic heart disease and other diseases of the circulatory system; Z80.0 Family history of malignant neoplasm of digestive organs; Z79.82 Long term (current) use of aspirin; Z79.899 Other long term (current) drug therapy; Z88.6 Allergy status to analgesic agent; Z88.1 Allergy status to other antibiotic agents; Z88.9 Allergy status to unspecified drugs, medicaments and biological substances
CPT/HCPCS: 49650; S2900; 64999; 86850; 86900; 86901; 88304

== ENCOUNTER 2021-08-18 15:46 | Emergency (ER) | payer BC ==
[2021-08-18 16:57] VITALS: RESP 18; TEMP 97.9
--- NOTE | 2021-08-18 17:20 | XR ---
EXAMINATION TYPE: XR KUB DATE OF EXAM: 08/18/2021 COMPARISON: NONE HISTORY: Abdominal pain TECHNIQUE: 2 views FINDINGS: 2 views upright show no sign of intestinal obstruction or pneumoperitoneum. Fecal pattern i s normal. No evidence of a mass. There are no pathologic calcifications over the kidneys. IMPRESSION: Nonacute abdomen.
[2021-08-18 20:19] LABS: Basophils # (A) 0.1 k/uL (0-0.2); Basophils % (A) 1 %; Eosinophils # (A) 0.1 k/uL (0-0.7); Eosinophils % (A) 2 %; HCT 44.5 % (39.0-53.0); HGB 15.3 gm/dL (13.0-17.5); Lymphocytes # (A) 1.6 k/uL (1.0-4.8); Lymphocytes % (A) 20 %; MCH 30.8 pg (25.0-35.0); MCHC 34.4 g/dL (31.0-37.0); MCV 89.7 fL (80.0-100.0); Mean Platelet Volume 8.6; Monocytes # (A) 0.5 k/uL (0-1.0); Monocytes % (A) 6 %; Neutrophils # (A) 5.8 k/uL (1.3-7.7); Neutrophils % (A) 71 %; Platelet Count 152 k/uL (150-450); RBC 4.96 m/uL (4.30-5.90); RDW 12.7 % (11.5-15.5); WBC 8.2 k/uL (3.8-10.6)
[2021-08-18 20:27] LABS: ALT 16 U/L (4-49); AST 23 U/L (17-59); African American GFR (CKD) >90 (>60 ml/min/1.73 sqM); Albumin 4.7 g/dL (3.5-5.0); Alkaline Phosphatase 68 U/L (38-126); Amylase 43 U/L (30-110); Anion Gap 7 mmol/L; Blood Urea Nitrogen 14 mg/dL (9-20); Calcium 9.4 mg/dL (8.4-10.2); Carbon Dioxide 29 mmol/L (22-30); Chloride 100 mmol/L (98-107); Glucose 93 mg/dL (74-99); Lipase 91 U/L (23-300); Non-African American GFR(CKD) 81 (>60 ml/min/1.73 sqM); Potassium 4.1 mmol/L (3.5-5.1); Sodium 136 mmol/L (137-145); Total Bilirubin 0.6 mg/dL (0.2-1.3); Total Protein 7.5 g/dL (6.3-8.2)
[2021-08-18 20:48] LABS: Appearance,Urine Clear (Clear); Bilirubin,Urine Negative (Negative); Blood,Urine Negative (Negative); Color,Urine Yellow; Glucose,Urine (UA) Negative (Negative); Ketones,Urine Negative (Negative); Leukocyte Esterase,Urine Negative (Negative); Nitrite,Urine Negative (Negative); Protein,Urine Negative (Negative); Specific Gravity,Urine 1.015 (1.001-1.035); Urobilinogen,Urine <2.0 mg/dL (<2.0)
--- NOTE | 2021-08-18 21:26 | ED ---
Abdominal Pain HPI - General Chief Complaint: Abdominal Pain Stated Complaint: Abd Pain Time Seen by Provider: 08/18/21 18:06 Source: patient, RN notes reviewed Mode of arrival: ambulatory Limitations: no limitations - History of Present Illness Initial Comments: This is a 61-year-old male who presents to the emergency department for abdominal pain, nausea, and vomiting. He was sent over by his primary care physician, Dr. Billings. Patient states that this started 3 week ago, and is in the bilateral lower quadrants. He does have associated nausea and vomiting. Denies ever having symptoms like this in the past. Denies any known modifying factors. Describes the vomit as being primarily bile. Does have known diverticulosis, however he has never had diverticulitis. Denies any changes to his bowel habits. Denies any fevers, chills, sore throat, cough, dyspnea, chest pain, palpitations, diarrhea, back pain, or headaches. MD Complaint: abdominal pain Onset/Timin -: week(s) Location: LLQ, RLQ Consistency: constant Associated Symptoms: nausea, vomiting - Related Data Home Medications Medication Instructions Recorded Confirmed Losartan [Cozaar] 50 mg PO DAILY@1200 11/23/13 05/15/21 traMADol HCL [Ultram] 50 mg PO BID PRN 11/23/13 05/15/21 Aspirin 81 mg PO DAILY 11/20/19 05/15/21 Atorvastatin Calcium [Lipitor] 40 mg PO DAILY 11/20/19 05/15/21 Metoprolol Succinate [Toprol XL] 25 mg PO DAILY@1200 11/20/19 05/15/21 Previous Rx's Medication Instructions Recorded Acetaminophen Tab [Tylenol] 650 mg PO Q6H #30 tab 05/17/21 Docusate [Colace] 100 mg PO BID #20 capsule 05/17/21 Ibuprofen [Motrin] 600 mg PO Q6HR PRN #40 tab 05/17/21 oxyCODONE HCL [OxyIR] 5 mg PO Q6H PRN 3 Days #10 tab 05/17/21 Ondansetron Odt [Zofran Odt] 4 mg PO Q8HR PRN #15 tab 08/18/21 Allergies Allergy/AdvReac Type Severity Reaction Status Date / Time acetaminophen Allergy Swelling Verified 08/18/21 16:57 of tongue and mouth, SOB amoxicillin [Amoxicillin] AdvReac Rash/Hives Verified 08/18/21 16:57 NSAIDS (Non-Steroidal AdvReac "Cannot Verified 08/18/21 16:57 Anti-Inflamma take with heart medications I am on." Review of Systems ROS Statement: Those systems with pertinent positive or pertinent negative responses have been documented in the HPI. ROS Other: All systems not noted in ROS Statement are negative. 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 History of Any Multi-Drug Resistant Organisms: None Reported Past Surgical History: Breast Surgery, Hernia Repair, Orthopedic Surgery Additional Past Surgical History / Comment(s): left breast lump remove, rt knee surgery Past Anesthesia/Blood Transfusion Reactions: No Reported Reaction Additional Past Anesthesia/Blood Transfusion Reaction / Comment(s): No problems with prior blood transfusion (53 yrs ago). Past Psychological History: No Psychological Hx Reported Smoking Status: Current every day smoker Past Alcohol Use History: Rare Past Drug Use History: None Reported - Past Family History Father Family Medical History: Cancer Additional Family Medical History / Comment(s): LUNG CANCER. Mother Family Medical History: Cancer Additional Family Medical History / Comment(s): THROAT CANCER. Brother(s) Family Medical History: Cancer, Congestive Heart Failure (CHF) Additional Family Medical History / Comment(s): COLON CANCER-, 2nd brother throat cancer, 3r brother CHF/cancer. General Exam Limitations: no limitations General appearance: alert, in no apparent distress Head exam: Present: atraumatic, normocephalic, normal inspection Respiratory exam: Present: normal lung sounds bilaterally. Absent: respiratory distress, wheezes, rales, rhonchi, stridor Cardiovascular Exam: Present: regular rate, normal rhythm, normal heart sounds. Absent: systolic murmur, diastolic murmur, rubs, gallop, clicks GI/Abdominal exam: Present: soft, tenderness (Exquisitely tender to light palpation in the left lower quadrant and right lower quadrant), guarding, normal bowel sounds. Absent: distended, rebound, rigid Neurological exam: Present: alert, oriented X3, CN II-XII intact Psychiatric exam: Present: normal affect, normal mood Skin exam: Present: warm, dry, intact, normal color. Absent: rash Course Vital Signs 08/18/21 08/18/21 08/18/21 16:54 20:08 22:11 Temperature 97.9 F Pulse Rate 86 79 73 Respiratory 18 18 Rate Blood Pressure 128/90 134/89 128/79 O2 Sat by Pulse 96 98 98 Oximetry Medical Decision Making - Medical Decision Making This is a 61-year-old male who presents to the emergency department for abdominal pain, nausea, and vomiting. Lab work was nonactionable and a KUB revealed no acute abnormalities. When I evaluated the patient, he was exquisitely tender on physical exam. Given his known diverticulosis and severe tenderness, CT of the abdomen and pelvis was obtained. Computed tomography scan of the abdomen and pelvis revealed no acute abnormalities. The patient is exquisitely tender to palpation, however he is not in significant pain when lying still. At this time, we don't have any clear cause for the patient's symptoms. He was given a starter pack for Zofran as his pharmacy was closed at the time of discharge. A prescription for Zofran was sent to the pharmacy as well. Instructed him to follow up with his primary care provider next week to discuss further testing as needed. I also listed the contact information for Dr. Angela's office, advised he contact them for an appointment as well to discuss ongoing symptoms. Return precautions reviewed in depth, the patient is instructed to return to the emergency department with any new, worsening, or concerning symptoms. Patient verbalized understanding. This case was discussed in detail with the attending ED physician. Presentation, findings, and treatment plan discussed in detail as well. - Lab Data Result diagrams: 08/18/21 20:03 08/18/21 20:03 Lab Results 08/18/21 08/18/21 08/18/21 Range/Units 20:03 20:03 20:03 WBC 8.2 (3.8-10.6) k/uL RBC 4.96 (4.30-5.90) m/uL Hgb 15.3 (13.0-17.5) gm/dL Hct 44.5 (39.0-53.0) % MCV 89.7 (80.0-100.0) fL MCH 30.8 (25.0-35.0) pg MCHC 34.4 (31.0-37.0) g/dL RDW 12.7 (11.5-15.5) % Plt Count 152 (150-450) k/uL MPV 8.6 Neutrophils % 71 % Lymphocytes % 20 % Monocytes % 6 % Eosinophils % 2 % Basophils % 1 % Neutrophils # 5.8 (1.3-7.7) k/uL Lymphocytes # 1.6 (1.0-4.8) k/uL Monocytes # 0.5 (0-1.0) k/uL Eosinophils # 0.1 (0-0.7) k/uL Basophils # 0.1 (0-0.2) k/uL Sodium 136 L (137-145) mmol/L Potassium 4.1 (3.5-5.1) mmol/L Chloride 100 (98-107) mmol/L Carbon Dioxide 29 (22-30) mmol/L Anion Gap 7 mmol/L BUN 14 (9-20) mg/dL Creatinine 0.99 (0.66-1.25) mg/dL Est GFR (CKD-EPI)AfAm >90 (>60 ml/min/1.73 sqM) Est GFR (CKD-EPI)NonAf 81 (>60 ml/min/1.73 sqM) Glucose 93 (74-99) mg/dL Calcium 9.4 (8.4-10.2) mg/dL Total Bilirubin 0.6 (0.2-1.3) mg/dL AST 23 (17-59) U/L ALT 16 (4-49) U/L Alkaline Phosphatase 68 (38-126) U/L Total Protein 7.5 (6.3-8.2) g/dL Albumin 4.7 (3.5-5.0) g/dL Amylase 43 (30-110) U/L Lipase 91 (23-300) U/L Urine Color Yellow Urine Appearance Clear (Clear) Urine pH 5.0 (5.0-8.0) Ur Specific [place] 1.015 (1.001-1.035) Urine Protein Negative (Negative) Urine Glucose (UA) Negative (Negative) Urine Ketones Negative (Negative) Urine Blood Negative (Negative) Urine Nitrite Negative (Negative) Urine Bilirubin Negative (Negative) Urine Urobilinogen <2.0 (<2.0) mg/dL Ur Leukocyte Esterase Negative (Negative) - Radiology Data Radiology results: report reviewed, image reviewed Disposition Clinical Impression: Abdominal pain Disposition: HOME SELF-CARE Instructions (If sedation given, give patient instructions): Abdominal Pain (ED) Additional Instructions: Return to the emergency department with any new, worsening, or concerning symptoms. Take the Zofran every 8 hrs as needed for nausea and vomiting. The office for Dr. Angela, gastroenterology, is listed on your discharge form. Contact that office for an appointment to discuss symptoms. Follow up with your primary care provider in 1-2 days. Prescriptions: Ondansetron Odt [Zofran Odt] 4 mg PO Q8HR PRN #15 tab PRN Reason: Nausea And Vomiting Is patient prescribed a controlled substance at d/c from ED?: No Referrals: Kev Billings DO [Primary Care Provider] - 1-2 days Anita Angela MD [STAFF PHYSICIAN] - 1-2 days
--- NOTE | 2021-08-18 22:05 | CT ---
EXAMINATION TYPE: CT abdomen pelvis w con DATE OF EXAM: 08/18/2021 COMPARISON: 04/24/2021 HISTORY: abdominal pain, acute, nonlocalized CT DLP: 1012.8 mGycm Automated exposure control for dose reduction was used. CONTRAST: Performed with IV Contrast, patient injected with 100ml mL of Isovue 300. Images obtained from the diaphragm to the floor the pelvis with IV contrast. Lung bases are clear of infiltrate. No pleural effusion. Heart size is normal. No pericardial effusio n. Liver spleen stomach pancreas gallbladder appear normal. The bile ducts are not dilated. There is no adrenal mass. Kidneys show satisfactory contrast opacification. There is no hydronephrosis. Ureter s are not dilated. Bladder distends smoothly. No inguinal hernia. No free fluid in the pelvis. No pel gladys mass. There is no mesenteric edema. No ascites or free air. No sign of a bowel obstruction. Appendix not se en. No sign of thickened appendix. The lumbar vertebra. Tach. No compression fracture. Bony pelvis is intact. The hip joints are intact. Delayed images show normal renal excretion. IMPRESSION: Negative CT scan of the abdomen and pelvis. There is clearing of the left-sided fat-containing inguin al hernia compared to old exam.
[2021-08-18 22:12] VITALS: BP 128/79; PULSE 73
[2021-08-18] MEDS ORDERED: ONDANSETRON 4 MG ODT STARTER PACK 2 TAB BTL PO STA (22:16)
== END 2021-08-18 22:52 | disposition home or self-care (01) ==
LOC: EC 15:46
DX: R10.9 Unspecified abdominal pain (principal); I10 Essential (primary) hypertension; F17.200 Nicotine dependence, unspecified, uncomplicated; Z88.0 Allergy status to penicillin; Z88.6 Allergy status to analgesic agent
CPT/HCPCS: 36415; 80053; 82150; 83690; 85025; 81003; 74018; 74177; 99284; S0119; Q9967

== ENCOUNTER 2022-02-09 23:46 | Emergency (ER) | payer BC ==
[~2022-02-09 23:46] MED LIST changes: -ACETAMINOPHEN TAB 500 MG TAB ONE; -DEXAMETHASONE SOD PHOSPHATE 4 MG/ML 1 ML VIAL IV ONE; +EPINEPHrine 10 ML SYRINGE (0.1 MG/ML) ONE; -HEPARIN SODIUM,PORCINE/PF 5,000 UNIT/0.5 ML SYRINGE SQ ONE; -HEPARIN SODIUM,PORCINE/PF 5,000 UNIT/0.5 ML SYRINGE SQ PRN; -LACTATED RINGERS 1,000 ML IV SCH; -LIDOCAINE 1% (10MG/ML) FOR IV START INTRADERMA PRN; -ONDANSETRON 4 MG/2 ML VIAL IVP ONE; -ONDANSETRON 4 MG/2 ML VIAL ONE; +SODIUM BICARB 8.4% 50 ML SYR (1 MEQ/ML) ONE; -[UNRECOGNIZED DRUG - REMARK] MISCELLANE ONE
--- NOTE | 2022-02-10 | ED ---
CPR HPI - General Stated Complaint: Cardiac Arrest Time Seen by Provider: 02/09/22 23:58 Source: RN notes reviewed, old records reviewed Mode of arrival: EMS Limitations: altered mental status, physical limitation - History of Present Illness Initial Comments: This is a 62-year-old male presented by EMS in cardiac arrest. Patient was found by family to be unresponsive not breathing and pulseless, patient had EMS called EMS and started ACLS upon arrival patient arrives in the emergency department in severe distress undergoing cardiac arrest MD Complaint: found unresponsive, stopped breathing, collapsed during rest -: minute(s) Place: home Bystander CPR Performed: No AED Applied by Bystander/Transactional Attorney: Yes Shock Advised: Yes Initial Findings in the Field: unresponsive ROSC in the Field: Yes Associated Injuries: No Associated Symptoms: chest pain Treatments Prior to Arrival: intubation, chest compressions, epinephrine mgs # - Related Data Home Medications Medication Instructions Recorded Confirmed Losartan [Cozaar] 50 mg PO DAILY@1200 11/23/13 05/15/21 traMADol HCL [Ultram] 50 mg PO BID PRN 11/23/13 05/15/21 Aspirin 81 mg PO DAILY 11/20/19 05/15/21 Atorvastatin Calcium [Lipitor] 40 mg PO DAILY 11/20/19 05/15/21 Metoprolol Succinate [Toprol XL] 25 mg PO DAILY@1200 11/20/19 05/15/21 Previous Rx's Medication Instructions Recorded Acetaminophen Tab [Tylenol] 650 mg PO Q6H #30 tab 05/17/21 Docusate [Colace] 100 mg PO BID #20 capsule 05/17/21 Ibuprofen [Motrin] 600 mg PO Q6HR PRN #40 tab 05/17/21 oxyCODONE HCL [OxyIR] 5 mg PO Q6H PRN 3 Days #10 tab 05/17/21 Ondansetron Odt [Zofran Odt] 4 mg PO Q8HR PRN #15 tab 08/18/21 Allergies Allergy/AdvReac Type Severity Reaction Status Date / Time acetaminophen Allergy Swelling Verified 08/18/21 16:57 of tongue and mouth, SOB amoxicillin [Amoxicillin] AdvReac Rash/Hives Verified 08/18/21 16:57 NSAIDS (Non-Steroidal AdvReac "Cannot Verified 08/18/21 16:57 Anti-Inflamma take with heart medications I am on." Review of Systems ROS Statement: Those systems with pertinent positive or pertinent negative responses have been documented in the HPI. ROS Other: All systems not noted in ROS Statement are negative. 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 History of Any Multi-Drug Resistant Organisms: None Reported Past Surgical History: Breast Surgery, Hernia Repair, Orthopedic Surgery Additional Past Surgical History / Comment(s): left breast lump remove, rt knee surgery Past Anesthesia/Blood Transfusion Reactions: No Reported Reaction Additional Past Anesthesia/Blood Transfusion Reaction / Comment(s): No problems with prior blood transfusion (53 yrs ago). Past Psychological History: No Psychological Hx Reported Smoking Status: Current every day smoker Past Alcohol Use History: Rare Past Drug Use History: None Reported - Past Family History Father Family Medical History: Cancer Additional Family Medical History / Comment(s): LUNG CANCER. Mother Family Medical History: Cancer Additional Family Medical History / Comment(s): THROAT CANCER. Brother(s) Family Medical History: Cancer, Congestive Heart Failure (CHF) Additional Family Medical History / Comment(s): COLON CANCER-, 2nd brother throat cancer, 3r brother CHF/cancer. General Exam Limitations: altered mental status, physical limitation General appearance: lethargic, obtunded, in distress Head exam: Present: atraumatic, normocephalic, normal inspection Eye exam: Absent: EOMI (Pupils are fixed and dilated), scleral icterus, conjunctival injection, periorbital swelling ENT exam: Present: normal exam, mucous membranes moist Neck exam: Present: normal inspection. Absent: tenderness, meningismus, lymphadenopathy GI/Abdominal exam: Present: soft, normal bowel sounds. Absent: distended, tenderness, guarding, rebound, rigid Extremities exam: Present: normal inspection, full ROM, normal capillary refill. Absent: tenderness, pedal edema, joint swelling, calf tenderness Back exam: Present: normal inspection Skin exam: Present: cyanosis, pallor, mottled Course Vital Signs 02/10/22 00:04 Pulse Rate 0 L - Reevaluation(s) Reevaluation #1: 02/09/22 23:50 medical record is reviewed Patient symptoms are improved here in the ER Patient informed of results and questions answered Reevaluation #2: 02/09/22 23:53 patient is apneic pupils fixed and dilated unresponsive pronounced at 23:53 Reevaluation #3: Spoke with quality engineer medical device regarding patient they are aware - Consultations Consultation #1: Spoke with patient's primary care who will sign certificate Medical Decision Making - Medical Decision Making 62-year-old male DF for evaluation. Patient came in she was found unresponsive and then 10 minutes later fall with no pulse patient in EMS at bedside who did provide significant ACLS at bedside in home and in route to the hospital. Patient is without signs of life here in the emergency department no neurological findings throughout emergency department stay, pupils 6 and dilated at neck with no heart sounds. Patient is pulseless and pronounced here in the emergency department Disposition Clinical Impression: Cardiopulmonary arrest Disposition: Is patient prescribed a controlled substance at d/c from ED?: No Referrals: Kev Billings DO [Primary Care Provider] - 1-2 days Time of Disposition: 00:05 Preliminary Cause of : CPA
[2022-02-10 00:07] VITALS: PULSE 0
== END 2022-02-10 02:19 | disposition expired ==
LOC: EC 23:46
DX: I46.9 Cardiac arrest, cause unspecified (principal); I10 Essential (primary) hypertension; M19.90 Unspecified osteoarthritis, unspecified site; F17.200 Nicotine dependence, unspecified, uncomplicated; Z79.82 Long term (current) use of aspirin; Z79.899 Other long term (current) drug therapy; Z88.0 Allergy status to penicillin; Z88.6 Allergy status to analgesic agent
CPT/HCPCS: 99285; J0171